=== PATIENT | female | born 1995 | race Two or more races ===

== ENCOUNTER → 2016-11-17 | Outpatient (CLI) | payer MEDICAID ==
[~2016-11-17] MED LIST: HYDROmorphONE/DILAUDID 1 MG/ML SYR ONE
== END ==
LOC: FIMAGING 09:26
PROVIDERS: ATTEND Midwife
DX: O99.212 Obesity complicating pregnancy, second trimester (principal); Z68.33 Body mass index [BMI] 33.0-33.9, adult; Z3A.23 23 weeks gestation of pregnancy
CPT/HCPCS: J1170